=== PATIENT | female | born 1995 | race Caucasian/White ===

== ENCOUNTER 2022-01-31 19:39 | Emergency (ER) | payer OTHER, SELFPAY ==
[2022-01-31] VITALS (36 sets, daily range): BP systolic 117–173; BP diastolic 48–78; PULSE 72–100; RESP 16–37; TEMP 36.7; O2SAT 96–99
[2022-01-31] MEDS: EPINEPHrine 0.3 MG KIT (19:50)
--- NOTE | 2022-01-31 19:55 | ED.GENADUL_ITS ---
Discharge Plan Disposition Patient Disposition: HOME Condition: Improving Discharge Details Clinical Impression: Allergic reaction ED Provider: Fermin Carrillo Home Meds and New Rx's Prescriptions: New epinephrine [EpiPen] 0.3 mg/0.3 mL auto-injector 0.3 mg IM ONCE PRN (Reason: anaphylaxis) Qty: 2 0RF Rx Instructions: as a single dose; may repeat once No Action Emgality Pen 120 mg/mL Pen Injector 120 mg SUBCUT QMONTH Discharge Instructions Instructions: General Allergic Reaction (ED) Additional Instructions: Please follow-up with your primary care physician. Please return to the emergency part for any worsening symptoms. 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 Consider allergic reaction versus early herbert phylaxis. Empiric epinephrine IM, famotidine, methylprednisolone, fluids, Zofran, close reassessment will observe patient for 4 to 6 hours, basic labs. Patient already took Benadryl before arrival. 23: 32 patient resting comfortably asymptomatic feeling much better after meds. No respiratory distress no hypoxia. Will be given EpiPen prescription. Strict return precautions given. HPI General Date/Time Provider Initiated Documentation: 01/31/22 19:44 . HPI Narrative: 26-year-old female history of anaphylaxis to shellfish, presents with itching rash subjective trouble breathing and tightness in her throat after eating this evening. Related Data Home Medications Medication Instructions Recorded Confirmed epinephrine 0.3 mg/0.3 mL 0.3 mg (0.3 mL) IM ONCE PRN 01/31/22 injection, auto-injector (EpiPen) anaphylaxis #2 ea [id number] 120 mg/mL 120 mg subcut QMONTH 01/31/22 01/31/22 subcutaneous pen injector (Emgality Pen) Previous Rx's Medication Instructions Recorded epinephrine 0.3 mg/0.3 mL 0.3 mg (0.3 mL) IM ONCE PRN 01/31/22 injection, auto-injector (EpiPen) anaphylaxis #2 ea Allergies Allergy/AdvReac Type Severity Reaction Status Date / Time shellfish derived Allergy Severe Anaphylaxis Unverified 01/31/22 19:48 lamotrigine [From Lamictal] Allergy Intermediate Skin Rash Unverified 01/31/22 19:48 General Stated Complaint: Allergic ELIGIO: 2 Review of Systems Narrative: Review of Systems Constitutional: negative Eyes: negative ENT: Throat tightness Cardiovascular: negative Respiratory: Chest tightness and subjective trouble breathing Gastrointestinal: negative : negative Musculoskeletal: negative Skin: Rash Neurologic: negative Psych: negative PFSH All Active Problems (Updated 01/31/22 @ 23:33 by Fermin Carrillo MD) Allergic reaction (Acute) Social History Smoking/Tobacco Use Status: Never Smoking risk assessment performed?: Yes Alcohol Intake: current Alcohol Intake frequency: holidays/special occasions only Substance use type: does not use Do you feel safe at home: Yes Do you feel safe in your relationship?: Yes Exam Narrative Exam Narrative: Physical Examination General: alert, awake, cooperative, appears moderately uncomfortable HEENT: normocephalic, atraumatic; PERRL, EOM intact, conjunctiva normal; tolerating secretions, normal voice, no stridor Neck: supple, trachea midline; full ROM Chest: normal to inspection Respiratory: normal respiratory effort, speaking in full sentences, clear to auscultation, no wheezing, rales or rhonchi Cardiac: regular rate, regular rhythm, S1S2 intact, no murmurs rubs or gallops GI: abdomen soft, non-tender, non-distended; no palpable mass or hepatosplenomegaly Skin: Facial redness Neuro: AAOx3, normal speech, moving all extremities Psych: Appropriate mood and affect Course Vital Signs Vital signs: Vital Signs Temperature 36.7 C 01/31/22 19:45 Pulse 81 01/31/22 19:45 Respiratory Rate 24 01/31/22 19:45 Blood Pressure 173/78 H 01/31/22 19:45 Pulse Oximetry 99 01/31/22 19:45 Temperature 36.7 C 01/31/22 19:45 Pulse 81 01/31/22 19:45 Respiratory Rate 24 01/31/22 19:45 Blood Pressure 173/78 H 01/31/22 19:45 Pulse Oximetry 99 01/31/22 19:45 Pain Level 0 01/31/22 19:45
[2022-01-31] MEDS: methylPREDNISolone SUCC 125 MG VIAL IVP (20:13)
[2022-01-31] MEDS: Normal Saline 1,000 ML 1000 ML IV (20:14)
[2022-01-31] MEDS: Ondansetron 4 MG/2 ML VIAL IVP (20:14)
[2022-01-31] MEDS: Famotidine 20 MG/2 ML VIAL IVP (20:15)
[2022-01-31 20:42] LABS: Abs Immature Grans 0.08 10^3/uL (0.0-0.06); Absolute Lymphocyte Count 4.26 10^3/uL (1.2-3.4); Absolute Monocyte Count 1.05 10^3/uL (0.1-0.8); Basophils % 0.4; Eosinophils % 1.2; HCT 41.8 % (36.0-46.0); Immature Grans % 0.5; Lymphocytes % 26.5; MCH 28.6 pg (27.0-33.0); MCHC 33.5 % (32.0-36.0); MCV 85 fL (80-95); MPV 10.7 fL (8.0-11.0); Monocytes % 6.5; Neutrophils % 64.9; Platelet Count 312 10^3/uL (130-400); RDW 13.5 % (11.7-14.6); RDW-SD 42.1 fL; WBC 16.08 10^3/uL (4.4-10.8)
[2022-01-31 20:43] LABS: Absolute Basophil Count 0.06 10^3/uL (0.0-0.2); Absolute Eosinophil Count 0.19 10^3/uL (0.0-0.7); Absolute Neutrophil Count 10.44 10^3/uL (1.2-6.7)
[2022-01-31 20:59] LABS: ALT 64 U/L (14-59); AST 39 U/L (15-37); Albumin 3.8 g/dL (3.4-5.0); Alkaline Phosphatase 69 U/L (46-116); Anion Gap 12.2 mmol/L (3-11); BUN 14 mg/dL (7-18); Bilirubin, Total 0.5 mg/dL (0.2-1.0); CO2 25.8 mmol/L (21.0-32.0); Calcium 9.2 mg/dL (8.5-10.1); Chloride 101 mmol/L (98-107); Glucose 98 mg/dL (74-106); Potassium 3.3 mmol/L (3.5-5.1); Sodium 139 mmol/L (136-145)
== END 2022-01-31 23:52 | disposition home or self-care (01) ==
LOC: ER 02-01 00:43
PROVIDERS: Emergency Provider Emergency Medicine
DX: T78.1XXA Other adverse food reactions, not elsewhere classified, initial encounter (principal); L53.9 Erythematous condition, unspecified; R07.89 Other chest pain; R06.00 Dyspnea, unspecified; R07.0 Pain in throat
CPT/HCPCS: 80053; 96361; 96372; 96374; 96375; 99284; 85025; J0171; J2405; J2930